=== PATIENT | male | born 1995 ===

== ENCOUNTER 2021-02-18 09:23 | Day surgery (SDC) | payer OTHER ==
[~2021-02-18] VITALS: Ht 162.6 cm; Wt 60.3 kg
[2021-02-18] MEDS ORDERED: COMPLETE MULTI1 TAB PO (10:10)
[2021-02-18 10:11] VITALS: BP 130/77; PULSE 83; TEMP 98.8
[2021-02-18] MEDS ORDERED: NORCO 325 MG-51 TAB PO (14:12)
[2021-02-18 14:55] VITALS: BP 130/72; PULSE 95; TEMP 98.7
--- NOTE | 2021-02-18 14:55 | NUR ---
Patient returned to [facility] via cart. Alert and oriented. Postop vitals started. Water and crackers provided. Lap site clean, dry intact.
[2021-02-18 15:10] VITALS: BP 128/66; PULSE 90
--- NOTE | 2021-02-18 15:10 | NUR ---
Patient sitting up in bed. Tolerating food and drink well. Vitals stable.
[2021-02-18 15:25] VITALS: BP 113/64; PULSE 82
--- NOTE | 2021-02-18 15:25 | NUR ---
Patient sitting up in bed. C/O of pain 09/27, request pain medication. Alert and oriented. Vitals stable.
--- NOTE | 2021-02-18 15:45 | NUR ---
Patient up to bathroom, able to void without difficulty. Reports decreased pain.
--- NOTE | 2021-02-18 16:07 | NUR ---
D/C IV with no complication. Instructed to dress and open door when ready.
--- NOTE | 2021-02-18 16:15 | NUR ---
Patient transfered via wheelchair to personal vehicle to be driven home by friend.
== END 2021-02-18 16:15 | disposition home or self-care (01) ==
LOC: SDCO 09:23
DX: K40.90 Unilateral inguinal hernia, without obstruction or gangrene, not specified as recurrent (principal); F17.290 Nicotine dependence, other tobacco product, uncomplicated
CPT/HCPCS: C1781; J3010; J7120